=== PATIENT | female | born 1985 | race Caucasian/White ===

== ENCOUNTER → 2023-10-04 09:08 | Outpatient (REF) | payer BC, SELFPAY | LOC: PNTC 09:08 | PROVIDERS: ATTENDING PHYSICIAN Obstetrics & Gynecology | DX: O30.001 Twin pregnancy, unspecified number of placenta and unspecified number of amniotic sacs, first trimester (principal); O99.320 Drug use complicating pregnancy, unspecified trimester; O09.529 Supervision of elderly multigravida, unspecified trimester | CPT/HCPCS: 36415; 76801; 76802; 76813; 76814 ==

== ENCOUNTER → 2023-11-01 09:40 | Outpatient (REF) | payer BC, SELFPAY | LOC: PNTC 09:40 | PROVIDERS: ATTENDING PHYSICIAN Obstetrics & Gynecology | DX: O09.529 Supervision of elderly multigravida, unspecified trimester (principal); O99.320 Drug use complicating pregnancy, unspecified trimester; O30.001 Twin pregnancy, unspecified number of placenta and unspecified number of amniotic sacs, first trimester | CPT/HCPCS: 76805; 76810 ==

== ENCOUNTER → 2023-11-29 15:00 | Outpatient (REF) | payer BC, SELFPAY | LOC: PNTC 15:00 | PROVIDERS: ATTENDING PHYSICIAN Obstetrics & Gynecology | DX: O30.049 Twin pregnancy, dichorionic/diamniotic, unspecified trimester (principal); O44.00 Complete placenta previa NOS or without hemorrhage, unspecified trimester | CPT/HCPCS: 76811; 76812; 76817 ==

== ENCOUNTER → 2023-12-12 08:43 | Outpatient (REF) | payer BC, SELFPAY | LOC: RCS 08:43 | PROVIDERS: ATTENDING PHYSICIAN Internal Medicine Cardiovascular Disease; FAMILY PHYSICIAN Family Medicine; OTHER PHYSICIAN Obstetrics & Gynecology | DX: R00.2 Palpitations (principal) | CPT/HCPCS: 93225; 93226 ==

== ENCOUNTER → 2023-12-27 15:06 | Outpatient (REF) | payer BC, SELFPAY | LOC: PNTC 15:06 | PROVIDERS: ATTENDING PHYSICIAN Obstetrics & Gynecology | DX: O30.049 Twin pregnancy, dichorionic/diamniotic, unspecified trimester (principal); O44.00 Complete placenta previa NOS or without hemorrhage, unspecified trimester | CPT/HCPCS: 76816; 76817 ==

== ENCOUNTER → 2024-01-24 09:33 | Outpatient (REF) | payer BC, SELFPAY | LOC: PNTC 09:33 | PROVIDERS: ATTENDING PHYSICIAN Obstetrics & Gynecology | DX: O30.049 Twin pregnancy, dichorionic/diamniotic, unspecified trimester (principal); O44.30 Partial placenta previa with hemorrhage, unspecified trimester | CPT/HCPCS: 76817 ==

== ENCOUNTER → 2024-02-09 15:33 | Outpatient (REF) | payer BC, SELFPAY | LOC: PNTC 15:33 | PROVIDERS: ATTENDING PHYSICIAN Obstetrics & Gynecology | DX: O30.049 Twin pregnancy, dichorionic/diamniotic, unspecified trimester (principal) | CPT/HCPCS: 59025 ==

== ENCOUNTER 2024-02-10 11:14 | Observation (INO) | payer BC, SELFPAY ==
[2024-02-10 11:22] VITALS: BP 106/43; BMI 25.7
[2024-02-10] MEDS: LR 1000 IV (11:41)
[2024-02-10] MEDS: ZOFRAN 4 MG IV (11:45)
[2024-02-10 11:54] LABS: % Basophils 0.3 % (0-2); % Eosinophils 1.2 % (0-6); % Immature Granulocytes 0.9 % (0-0.5); % Lymphocytes 5.9 % (20.5-51.1); % Monocytes 3.8 % (1.7-9.3); % Neutrophils 87.9 % (42.2-75.2); Absolute Eosinophils 0.1 10^3/uL (0-0.7); Absolute Immature Granulocytes 0.1 10^3/uL (0-0.05); Absolute Lymphocytes 0.6 10^3/uL (1.2-3.4); Absolute Monocytes 0.4 10^3/uL (0.1-0.6); Absolute Neutrophils 8.8 10^3/uL (1.4-6.5); Hematocrit 36.8 % (37.0-47.0); Hemoglobin 12.2 g/dL (12.0-16.0); Mean Corp Hgb Conc. 33.2 g/dL (33.0-37.0); Mean Corpuscular Volume 84.4 fL (81.0-99.0); Mean Platelet Volume 11.4 fL (7.4-10.4); Nucleated Red Blood Cells % 0 %; Platelet Count 216 10^3/uL (130-400); Red Blood Cell Count 4.36 10^6/uL (4.20-5.40); Red Cell Dist. Width 13.4 % (11.5-14.5)
[2024-02-10 12:24] LABS: ALT (SGPT) 22 U/L (0-35); AST (SGOT) 38 U/L (14-36); Albumin 3.4 g/dl (3.5-5.0); Alkaline Phosphatase 181 U/L (38-126); Blood Urea Nitrogen 9 mg/dl (7-17); Calcium 8.4 mg/dl (8.4-10.2); Carbon Dioxide 17 mmol/L (22-30); Chloride 107 mmol/L (98-107); Estimated Creatinine Clearance 92 ml/min; Glucose 79 mg/dl (70-99); Potassium 4.5 mmol/L (3.5-5.1); Sodium 135 mmol/L (135-145); Total Bilirubin 0.5 mg/dl (0.2-1.3); Total Protein 6.1 g/dl (6.3-8.2); eGFR > 60.00
== END 2024-02-10 16:21 | disposition home or self-care (01) ==
LOC: LDRP 11:14
PROVIDERS: ADMITTING PHYSICIAN Obstetrics & Gynecology
DX: K52.9 Noninfective gastroenteritis and colitis, unspecified (principal); R11.2 Nausea with vomiting, unspecified; R10.9 Unspecified abdominal pain; O30.043 Twin pregnancy, dichorionic/diamniotic, third trimester; Z3A.30 30 weeks gestation of pregnancy; O09.523 Supervision of elderly multigravida, third trimester; O99.820 Streptococcus B carrier state complicating pregnancy; O44.43 Low lying placenta NOS or without hemorrhage, third trimester
CPT/HCPCS: 80053; 85025; 86850; 86900; 86901; G0378

== ENCOUNTER → 2024-02-23 15:32 | Outpatient (REF) | payer BC, SELFPAY | LOC: PNTC 15:32 | PROVIDERS: ATTENDING PHYSICIAN Obstetrics & Gynecology | DX: O30.049 Twin pregnancy, dichorionic/diamniotic, unspecified trimester (principal); O44.30 Partial placenta previa with hemorrhage, unspecified trimester | CPT/HCPCS: 59025 ==

== ENCOUNTER → 2024-03-01 15:36 | Outpatient (REF) | payer BC, SELFPAY | LOC: PNTC 15:36 | PROVIDERS: ATTENDING PHYSICIAN Obstetrics & Gynecology | DX: O30.049 Twin pregnancy, dichorionic/diamniotic, unspecified trimester (principal); O44.30 Partial placenta previa with hemorrhage, unspecified trimester | CPT/HCPCS: 59025 ==

== ENCOUNTER → 2024-03-08 15:38 | Outpatient (REF) | payer BC, SELFPAY | LOC: PNTC 15:38 | PROVIDERS: ATTENDING PHYSICIAN Obstetrics & Gynecology | DX: O30.049 Twin pregnancy, dichorionic/diamniotic, unspecified trimester (principal); O44.00 Complete placenta previa NOS or without hemorrhage, unspecified trimester | CPT/HCPCS: 59025 ==

== ENCOUNTER → 2024-03-15 13:47 | Outpatient (REF) | payer BC, SELFPAY | LOC: PNTC 13:47 | PROVIDERS: ATTENDING PHYSICIAN Obstetrics & Gynecology | DX: O44.30 Partial placenta previa with hemorrhage, unspecified trimester (principal); O30.049 Twin pregnancy, dichorionic/diamniotic, unspecified trimester | CPT/HCPCS: 59025; 76815; 76818 ==

== ENCOUNTER 2024-03-17 11:19 | Inpatient (IN) | payer BC, SELFPAY ==
[2024-03-17] VITALS (7 sets, daily range): BP systolic 127–165; BP diastolic 66–92; BMI 26.6
[2024-03-17] MEDS: LR 1000 IV ×2 (12:45→13:33)
[2024-03-17 12:49] LABS: % Basophils 0.7 % (0-2); % Eosinophils 2.7 % (0-6); % Immature Granulocytes 0.9 % (0-0.5); % Monocytes 8.1 % (1.7-9.3); % Neutrophils 65.6 % (42.2-75.2); Absolute Basophils 0.1 10^3/uL (0-0.2); Absolute Eosinophils 0.3 10^3/uL (0-0.7); Absolute Immature Granulocytes 0.1 10^3/uL (0-0.05); Absolute Monocytes 0.8 10^3/uL (0.1-0.6); Hematocrit 37.7 % (37.0-47.0); Hemoglobin 12.7 g/dL (12.0-16.0); Mean Corp Hgb Conc. 33.7 g/dL (33.0-37.0); Mean Corpuscular Hgb 27.3 pg (27.0-31.0); Mean Corpuscular Volume 80.9 fL (81.0-99.0); Mean Platelet Volume 12.5 fL (7.4-10.4); Nucleated Red Blood Cells % 0.2 %; Platelet Count 174 10^3/uL (130-400); Red Blood Cell Count 4.66 10^6/uL (4.20-5.40); Red Cell Dist. Width 13.6 % (11.5-14.5); White Blood Cell Count 9.2 10^3/uL (4.8-10.8)
[2024-03-17] MEDS: PENICILLIN 110 UNITS IV (13:51)
[2024-03-17 14:10] LABS: ALT (SGPT) 21 U/L (0-35); AST (SGOT) 29 U/L (14-36); Albumin 3.5 g/dl (3.5-5.0); Alkaline Phosphatase 362 U/L (38-126); Blood Urea Nitrogen 11 mg/dl (7-17); Calcium 9.1 mg/dl (8.4-10.2); Carbon Dioxide 18 mmol/L (22-30); Chloride 108 mmol/L (98-107); Estimated Creatinine Clearance 71 ml/min; Glucose 62 mg/dl (70-99); Potassium 4.6 mmol/L (3.5-5.1); Sodium 135 mmol/L (135-145); Total Bilirubin 0.6 mg/dl (0.2-1.3); eGFR > 60.00
[2024-03-17] MEDS: SUBLIMAZE 100 MCG EPIDURAL (16:06)
[2024-03-17] MEDS: FENTANYL/BUPIVACAINE 100 EPIDURAL (16:06)
[2024-03-17] MEDS: ANCEF 10 IV (17:30)
[2024-03-17] MEDS: METHERGINE INJECTION 0.2 MG IM (18:45)
[2024-03-17] MEDS: CYTOTEC 800 MCG RECTAL (18:55)
[2024-03-17] MEDS: TYLENOL 1000 MG PO ×2 (19:15→23:14)
[2024-03-17] MEDS: DEMEROL 12.5 MG IV (19:16)
[2024-03-17] MEDS: ZOFRAN 4 MG IV (19:19)
[2024-03-17] MEDS: REGLAN 10 MG IV (19:41)
[2024-03-17] MEDS: PITOCIN 30 UNITS/NSS 500 ML IV (19:45)
[2024-03-17 19:57] LABS: % Basophils 0.5 % (0-2); % Eosinophils 0.6 % (0-6); % Immature Granulocytes 0.8 % (0-0.5); % Monocytes 3.2 % (1.7-9.3); % Neutrophils 84.9 % (42.2-75.2); Absolute Basophils 0.1 10^3/uL (0-0.2); Absolute Eosinophils 0.1 10^3/uL (0-0.7); Absolute Immature Granulocytes 0.1 10^3/uL (0-0.05); Absolute Lymphocytes 1.3 10^3/uL (1.2-3.4); Absolute Monocytes 0.4 10^3/uL (0.1-0.6); Hematocrit 37.4 % (37.0-47.0); Hemoglobin 11.9 g/dL (12.0-16.0); Mean Corp Hgb Conc. 31.8 g/dL (33.0-37.0); Mean Corpuscular Hgb 26.9 pg (27.0-31.0); Mean Corpuscular Volume 84.4 fL (81.0-99.0); Mean Platelet Volume 12.5 fL (7.4-10.4); Nucleated Red Blood Cells % 0.2 %; Platelet Count 184 10^3/uL (130-400); Red Blood Cell Count 4.43 10^6/uL (4.20-5.40); Red Cell Dist. Width 13.6 % (11.5-14.5)
[2024-03-17 20:09] LABS: INR 0.94; PT 12.8 Sec (11.4-14.6)
[2024-03-17 20:10] LABS: APTT 28.5 Sec (23.4-35.0)
[2024-03-17] MEDS: ROXICODONE 5 MG PO (22:11)
[2024-03-17] MEDS: TRANDATE 200 MG PO (23:17)
[2024-03-17 23:36] LABS: Fibrinogen 511 MG/DL (199-459)
[2024-03-17] MEDS: MORPHINE SULFATE 2 MG IV (23:50)
[2024-03-18 05:45] LABS: Hematocrit 35.4 % (37.0-47.0); Hemoglobin 11.8 g/dL (12.0-16.0); Mean Corp Hgb Conc. 33.3 g/dL (33.0-37.0); Mean Corpuscular Hgb 27.4 pg (27.0-31.0); Mean Corpuscular Volume 82.3 fL (81.0-99.0); Mean Platelet Volume 11.9 fL (7.4-10.4); Platelet Count 150 10^3/uL (130-400); Red Cell Dist. Width 13.7 % (11.5-14.5); White Blood Cell Count 15.5 10^3/uL (4.8-10.8)
[2024-03-18] MEDS: DILAUDID 0.5 MG IV (05:57)
[2024-03-18 06:28] LABS: ALT (SGPT) 19 U/L (0-35); AST (SGOT) 36 U/L (14-36); Albumin 2.2 g/dl (3.5-5.0); Alkaline Phosphatase 223 U/L (38-126); Blood Urea Nitrogen 11 mg/dl (7-17); Calcium 7.7 mg/dl (8.4-10.2); Carbon Dioxide 19 mmol/L (22-30); Chloride 105 mmol/L (98-107); Estimated Creatinine Clearance 71 ml/min; Glucose 102 mg/dl (70-99); Potassium 4.3 mmol/L (3.5-5.1); Sodium 128 mmol/L (135-145); Total Bilirubin 0.7 mg/dl (0.2-1.3); Total Protein 4.5 g/dl (6.3-8.2); eGFR > 60.00
[2024-03-18] MEDS: PEPCID 10 MG PO (07:43)
[2024-03-18] MEDS: PRENATAL PLUS 1 TABLET PO (07:43)
[2024-03-18] MEDS: PROCARDIA XL (EXTENDED RELEASE) 30 MG PO (07:46)
[2024-03-18] MEDS: MOTRIN 600 MG PO ×3 (09:20→21:44)
--- NOTE | 2024-03-18 10:40 | W.PN.ANS.POP ---
Anesthesia Post Operative
- Anesthesia Post Op Note
Vital Signs Stable-See Nursing Note: Yes
Airway Patent: Yes
Adequate Pain Control: Yes
Change in Mental Status: No
Current Postoperative Nausea & Vomiting: No
Anesthesia Complications: No
General Anesthetic Recall: No
Unplanned Admission: No
Post Op Hydration Adequate: Yes
[2024-03-18] MEDS: ZOLOFT 50 MG PO (12:31)
[2024-03-18] MEDS: TYLENOL 650 MG PO (13:50)
[2024-03-18] MEDS: PERCOCET 5/325 1 TABLET PO (17:52)
[2024-03-18] MEDS: BENADRYL 50 MG PO (21:44)
[2024-03-19] MEDS: MOTRIN 600 MG PO ×4 (03:48→23:28)
[2024-03-19] MEDS: PERCOCET 5/325 1 TABLET PO ×5 (03:48→23:29)
[2024-03-19] MEDS: PRENATAL PLUS 1 TABLET PO (08:01)
[2024-03-19] MEDS: PROCARDIA XL (EXTENDED RELEASE) 30 MG PO (08:01)
[2024-03-19] MEDS: PEPCID 10 MG PO (08:05)
[2024-03-19] MEDS: SENOKOT-S 1 TABLET PO (08:05)
[2024-03-19] MEDS: MYLICON 80 MG PO (08:05)
[2024-03-19] MEDS: ZOLOFT 50 MG PO (08:06)
[2024-03-20] MEDS: MOTRIN 600 MG PO ×2 (05:47→13:44)
[2024-03-20] MEDS: PERCOCET 5/325 1 TABLET PO ×2 (08:14→13:43)
[2024-03-20] MEDS: ZOLOFT 50 MG PO (08:15)
[2024-03-20] MEDS: PROCARDIA XL (EXTENDED RELEASE) 30 MG PO (08:15)
[2024-03-20] MEDS: PEPCID 10 MG PO (08:16)
[2024-03-20] MEDS: PRENATAL PLUS 1 TABLET PO (08:16)
[2024-03-20 11:35] LABS: Syphilis/T. pallidum Ab Reflex Negative (Negative)
--- NOTE | 2024-03-20 13:41 | W.DS.TRANS ---
DC Summary - [employer]
-
Discharge Instructions:
Discharge Diagnosis/Procedures twins 35w4d; preeclampsia without
severe features, vaginal delivery(baby A) and
primary LTCS (baby2), hemorrhage,
anxiety and depression, blood transfusion
Diet Regular
Activity No strenuous activity
Driving Restrictions No driving for 2 weeks
Bathing Restrictions OK to Shower
Instructions:
Stand-Alone Forms: LDRP Delivery
LDRP Hypertensive Disorders
Changes to Home Medications: No
Discharge Medications:
DC Medications w/original date entered in [employer]
Vitamin Tablet 1 tab PO DAILY Supplement 05/30/21
famotidine 10 mg tablet (Acid Controller) 1 tab PO DAILY 05/30/21
iron, carbonyl 45 mg tablet (Feosol) 45 mg PO DAILY 02/10/24
aspirin 81 mg tablet 81 mg PO DAILY 03/17/24
oxycodone 5 mg tablet 5 mg PO Q6H PRN Pain #12 tabs 03/20/24
Home Medication Changes
Pending Results: Yes
Additional Pending Results:
pathology placentas
Total time spent discharging patient (in min): 30
[2024-03-20] MEDS: SENOKOT-S 1 TABLET PO (13:50)
== END 2024-03-20 17:18 | disposition home or self-care (01) | DRG 787 ==
LOC: LDRP 11:19
PROVIDERS: ADMITTING PHYSICIAN Obstetrics & Gynecology
PROC: 0W3R7ZZ Control Bleeding in Genitourinary Tract, Via Natural or Artificial Opening (ICD-10-PCS; 2024-03-17)
PROC: 10E0XZZ Delivery of Products of Conception, External Approach (ICD-10-PCS; 2024-03-17)
PROC: 0KQM0ZZ Repair Perineum Muscle, Open Approach (ICD-10-PCS; 2024-03-17)
PROC: 10D00Z1 Extraction of Products of Conception, Low, Open Approach (ICD-10-PCS; 2024-03-17)
DX: O42.013 Preterm premature rupture of membranes, onset of labor within 24 hours of rupture, third trimester (principal); O72.1 Other immediate postpartum hemorrhage; Z37.2 Twins, both liveborn; O99.824 Streptococcus B carrier state complicating childbirth; O32.1XX2 Maternal care for breech presentation, fetus 2; O70.1 Second degree perineal laceration during delivery; O99.344 Other mental disorders complicating childbirth; F32.A Depression, unspecified; O30.043 Twin pregnancy, dichorionic/diamniotic, third trimester; Z3A.35 35 weeks gestation of pregnancy
CPT/HCPCS: 88307; 59412; 80053; 85025; 85027; 85384; 85610; 85730; 86780; 86850; 86900; 86901; 86920; P9016